=== PATIENT | male | born 1950 | race Caucasian/White ===

== ENCOUNTER → 2017-01-04 | Outpatient (CLI) | payer MEDICARE, MEDICAID ==
[~2017-01-04] MED LIST: ALLOPURINOL300 MG PO; ASPIRIN EC81 MG PO; CALCIUM 600 +1 EAC4 PO; CLARITIN10 MG PO; COREG6.25 MG PO; FLEXERIL10 MG PO; FLONASE 50 MCG/16 GM NOSE; FORTEO 6001 PEN/600 IM; HUMIRA 4040 MG/0.8 SUB-Q; HYDROCODON-ACE1 EAC4 PO; LIPITOR40 MG PO; MIRALAX17 GM PO; MUCOMYST 20200 MG/M1 PO; NITROSTAT0.4 MG SL; NORCO 5-325 MG1 TAB PO; OXYCONTIN60 MG PO; PERIACTIN4 MG PO; PLAVIX75 MG PO; PRILOSEC20 MG PO; PROTONIX40 MG PO; REFRESH PLUS1 EACH OPHTH; RESTASIS1 EACH OPHTH; SENOKOT8.6 MG PO; SODIUM BICARBO650 MG PO; THERAGRAN-M1 TAB PO; VITAMIN D-32000 UNIT PO; ZESTRIL2.5 MG PO
== END | disposition disaster alternative care site (69) ==
LOC: LGSMG 12:38
DX: I10 Essential (primary) hypertension (principal); D50.9 Iron deficiency anemia, unspecified; N18.4 Chronic kidney disease, stage 4 (severe)

== ENCOUNTER 2017-01-14 12:49 | Emergency (ER) | payer MEDICARE, MEDICAID ==
--- NOTE | ~2017-01-14 | ER ---
PATIENT'S NAME: CESILIA ONEIL [facility] AGE: 66 Y [address] ROOM: [place] [address] LOCATION: ED ADMIT DATE: 01/14/2017 ER/Outpatient Report DISCHARGE DATE: 01/14/2017 FAMILY PHYSICIAN: Physician, Unknown ATTENDING PHYSICIAN: Bassam Bray Arrival Time: 1242 hours. Encounter Time: 1243 hours. CHIEF COMPLAINT: High blood pressure. HISTORY OF PRESENT ILLNESS: The patient is a pleasant and well-appearing 66-year-old male, who arrives by [facility] to the [facility] Emergency Department stating that he recorded a blood pressure at home of 190 systolic and called the ambulance to be checked out to the ER. He complains of dizziness off and on for the last 2 days with no precipitating factors. He has a pertinent history of hypertension, but is medicated. He is a regular patient of Dr. Catalan, and his magnetic doctor is Dr. Adarsh Salcedo. The patient states he has been going about his normal routine, including walking this morning, and did not have any issues. He uses a Velcro wrist-mounted home blood pressure cuff that he has just received over the last week. Denies chest pain. Denies shortness of breath. Denies fatigue. He could not further describe any details regarding the dizziness. MEDICATIONS: See nursing note for detail. ALLERGIES: IT SHOULD BE LISTED ON THE NURSING NOTE WELL. THE PATIENT DENIES ANY KNOWN DRUG ALLERGIES. REVIEW OF SYSTEMS: All systems reviewed by me and negative unless otherwise stated in the HPI. PAST MEDICAL HISTORY: Heart disease, hypertension, "kidney issues." PAST SURGICAL HISTORY: 1. Basal cell cancer removal from back. 2. Two heart stents in the past on 2 separate cath attempts. The latest being in the last 1-[address] Salcedo. 3. He also has pins in his hip, did not know which side. PATIENT'S NAME: CESILIA ONEIL [facility] AGE: 66 Y [address] ROOM: [place], [place] [address] LOCATION: ED ADMIT DATE: 01/14/2017 ER/Outpatient Report DISCHARGE DATE: 01/14/2017 FAMILY PHYSICIAN: Physician, Unknown ATTENDING PHYSICIAN: Bassam Bray SOCIAL HISTORY: Denies smoking history. Occasional use of alcohol. Retired. PHYSICAL EXAMINATION: VITAL SIGNS: Weight 71.5 kg, blood pressure 138/76, pulse 65, respirations 20, temperature 97.7 taken tympanically, SpO2 at 99% on room air. Current pain 0/10. GENERAL: The patient is well developed, well nourished, in no acute distress. Calm, alert, and oriented to person, place, and time. Denies complaint. HEENT: Head is atraumatic and normocephalic. Eyes: Conjunctivae are clear. No discharge. Pupils are PERRLA bilaterally. EOMFI bilaterally. No nystagmus. Ears with tympanic membranes showing good light reflex bilaterally. Auditory canals are patent. Turbinates are pink and not swollen. No drainage. Throat: Midline uvula. No exudates erythema or tonsillar hypertrophy. NECK: Supple and without lymphadenopathy. Trachea midline. No JVD. LUNGS: Clear to auscultation bilaterally. No wheezes, crackles, rhonchi, or stridor. Normal respiratory effort. HEART: Regular rate and rhythm. No S3, S4, or extra sounds. EXTREMITIES: Show no numbness or tingling. No clubbing, cyanosis, or edema. Full range of motion x4. +2/4 pulses at radial artery bilaterally and dorsalis pedis. NEUROLOGIC: Cranial nerves 2 through 12 grossly intact. Strength 5/5 bilaterally in the upper and lower extremities. Gait is steady and without assistance. Deep tendon reflexes +2/4 bilaterally at the knee and ankle level. LABORATORY DATA: Sodium 134, potassium 3.9, chloride 99, CO2 of 27, anion gap 11.9, glucose 101, calcium 8.1, BUN 28, creatinine 1.8, total protein 7.8, albumin 2.4, globulin 5.4, A/G ratio is 0.4, total bilirubin 0.8, alkaline phosphatase 146, AST 68, ALT 39, estimated GFR 39, CPK 23, CK-MB 0.6. Troponin I less than 0.040. CBC with white blood cell count at 4.6, red blood cells 3.56, hemoglobin 12.2, hematocrit 35.0, MCV 98.3, MCH 34.3, MCHC 34.9, RDW 13.2, platelets 190, MPV 8.4. Auto-diff normal, except for an IG percentage marginally elevated at 0.4. EKG shows normal sinus rhythm with occasional PVCs. Nonspecific T-wave abnormality. Rate of 63. Comparison with old EKGs shows that some abnormalities are no longer present. PATIENT'S NAME: CESILIA ONEIL [facility] AGE: 66 Y [address] ROOM: [place] [address] LOCATION: [facility] ADMIT DATE: 01/14/2017 ER/Outpatient Report DISCHARGE DATE: 01/14/2017 FAMILY PHYSICIAN: Physician, Unknown ATTENDING PHYSICIAN: Bassam Bary ASSESSMENT: 1. Hypertension. 2. Dizziness. PLAN: The patient was initially anxious about home blood pressure via wrist cuff found at 190 systolic. He contacted the ambulance at that time, who measured current blood pressure around the mid 140s on multiple occasions. He was transported to the emergency department and monitoring trended him gradually from mid 140s [address] down to normal values in the mid 120s to the mid 80s. He did not develop chest pain or shortness of breath under his time in the emergency department. No interventions indicated. Strongly advised the patient to follow up with his regular physician within the next 5 to 7 days or sooner should other issues develop. I am suspicious of an error on the home blood pressure cuff. The patient was then discharged under his own care in improved status with instructions to take all medications as prescribed. Discussed med risks, side effects, and benefits in detail. Give plenty of rest and liquids. Take Tylenol or ibuprofen as directed unless allergic, asthmatic, or aspirin sensitive. No fever or discomfort. Return to the emergency department or PCP if symptoms persist or worsen. ROBBIN EARLY PA-C FOR BASSAM BRAY MD SMR/modl /[id number] d: 01/14/171954 t: 01/31/17909, OUTPATIENT REPORT
[2017-01-14 13:20] LABS: BASOPHIL % 0.9 %; EOSINOPHIL # 0.2 K/uL (0.0-0.5); EOSINOPHIL % 3.5 %; HEMOGLOBIN 12.2 g/dL (11.0-16.0); IMMATURE GRANULOCYTE % 0.4 %; LYMPHOCYTE # 1.5 K/uL (0.8-4.0); LYMPHOCYTE % 33.6 %; MCH 34.3 pg (27.0-34.0); MCHC 34.9 gm/dL (32.0-36.5); MCV 98.3 fl (83.0-98.0); MONOCYTE # 0.9 K/uL (0.0-1.0); MONOCYTE % 19.3 %; MPV 8.4 fl (9.4-12.4); NEUTROPHIL # (ANC) 1.9 K/uL (1.4-9.0); NEUTROPHIL % 42.3 %; NRBC % 0 /100WBC (0-0.00); PLATELET COUNT 190 K/uL (150-450); RBC 3.56 M/uL (3.50-5.50); RDW-CV 13.2 % (11.9-14.6); WBC 4.6 K/uL (4.0-11.0)
[2017-01-14 13:40] LABS: ALBUMIN 2.4 gm/dL (3.5-5.0); ALK PHOS 146 IU/L (33-138); ALT 39 IU/L (12-78); ANION GAP 11.9 (10.0-19.0); AST 68 IU/L (10-40); BLOOD UREA NITROGEN 28 mg/dL (6-24); CALCIUM 8.1 mg/dL (8.5-10.5); CHLORIDE 99 mMol/L (96-110); CO2 27 mMol/L (22-32); CPK 23 IU/L (35-332); CREATININE 1.8 mg/dL (0.6-1.3); POTASSIUM 3.9 mMol/L (3.7-5.1); SODIUM 134 mMol/L (135-145); TOTAL BILIRUBIN 0.8 mg/dL (0.0-1.5); TOTAL PROTEIN 7.8 g/dL (6.0-8.4)
== END 2017-01-14 14:18 | disposition disaster alternative care site (69) ==
LOC: GMED 12:49
PROVIDERS: Physician Assistant
DX: I10 Essential (primary) hypertension (principal); R42 Dizziness and giddiness; Z98.890 Other specified postprocedural states; Z95.5 Presence of coronary angioplasty implant and graft; Z79.891 Long term (current) use of opiate analgesic; Z79.899 Other long term (current) drug therapy

== ENCOUNTER → 2017-02-09 | Outpatient (CLI) | payer MEDICARE, MEDICAID | LOC: LHSC 16:06 | DX: Z12.11 Encounter for screening for malignant neoplasm of colon (principal) ==